=== PATIENT | female | born 1970 | race Caucasian/White ===

== ENCOUNTER 2018-12-14 19:49 | Emergency (ER) | payer BC ==
[~2018-12-14] VITALS: Ht 160 cm; Wt 45.4 kg
--- NOTE | 2018-12-14 20:20 | NUR ---
Patient ambulated with stable gait. Speech clear, speaks in complete sentences. A/Ox4. Patient came for c/o cutting her left index finger while cooking.
--- NOTE | 2018-12-14 21:10 | NUR ---
Patient discharged to home in stable conditon. Written and verbal after care instructions given. Patient verbalizes understanding of instructions.
[2018-12-14 21:58] VITALS: BP 120/72
== END 2018-12-14 21:00 | disposition home or self-care (01) ==
LOC: ER 19:54
DX: S61.301A Unspecified open wound of left index finger with damage to nail, initial encounter (principal); W26.0XXA Contact with knife, initial encounter; Y93.89 Activity, other specified; Y92.89 Other specified places as the place of occurrence of the external cause; Y99.8 Other external cause status
CPT/HCPCS: A4663